=== PATIENT | female | born 1980 | race African-American/Black ===

== ENCOUNTER 2016-09-15 16:28 | Emergency (ER) | payer SELFPAY ==
[~2016-09-15] VITALS: Ht 157.5 cm; Wt 85.0 kg
[2016-09-15 19:09] VITALS: BP 150/89
== END 2016-09-15 19:26 | disposition home or self-care (01) ==
LOC: EMS 16:29
DX: J02.9 Acute pharyngitis, unspecified (principal); J06.9 Acute upper respiratory infection, unspecified
CPT/HCPCS: 99283

== ENCOUNTER 2016-10-09 11:45 | Emergency (ER) | payer OTHER ==
[~2016-10-09] VITALS: Ht 157.5 cm; Wt 90.4 kg
[2016-10-09] MEDS ORDERED: ACETAMINOPHEN 500 MG TABLET PO ONE (14:15)
[2016-10-09] MEDS ORDERED: IBUPROFEN 600 MG TABLET PO ONE (14:15)
[2016-10-09 15:09] VITALS: BP 129/84
== END 2016-10-09 15:44 | disposition home or self-care (01) ==
LOC: EMS 11:46
DX: M54.6 Pain in thoracic spine (principal); M79.652 Pain in left thigh; V49.40XA Driver injured in collision with unspecified motor vehicles in traffic accident, initial encounter; Y93.89 Activity, other specified; Y92.89 Other specified places as the place of occurrence of the external cause; Y99.8 Other external cause status
CPT/HCPCS: 72072; 99284

== ENCOUNTER 2017-12-03 07:44 | Emergency (ER) | payer OTHER ==
[~2017-12-03] VITALS: Ht 160 cm; Wt 95.5 kg
[2017-12-03] MEDS ORDERED: KETOROLAC TROMETHAMINE 30 MG/ML VIAL IM ONE (09:30)
[2017-12-03] MEDS ORDERED: AMOX TR/POT CLAV 875 MG/125 MG TABLET PO ONE (09:30)
[2017-12-03] MEDS ORDERED: CefTRIAXone SODIUM 1 GM in DEXTROSE 5%-WATER 10 ML IV ONE (09:45)
[2017-12-03] MEDS ORDERED: DEXAMETHASONE SOD PHOS 4 MG/ML 5 ML VIAL IVP ONE (09:45)
[2017-12-03] MEDS ORDERED: KETOROLAC TROMETHAMINE 30 MG/ML VIAL IVP ONE (09:45)
[2017-12-03 10:08] VITALS: BP 141/71
[2017-12-03] MEDS ORDERED: BENZOCAINE/MENTHOL LOZENGE [8 LOZENGES/PACKET] PO ONE (10:15)
== END 2017-12-03 11:01 | disposition home or self-care (01) ==
LOC: EMS 07:45
DX: J36 Peritonsillar abscess (principal)
CPT/HCPCS: 87430; 96365; 96375; 99284; J0696; J1100; J1885; J7060

== ENCOUNTER 2018-03-12 16:16 | Emergency (ER) | payer OTHER ==
[~2018-03-12] VITALS: Ht 157.5 cm; Wt 86.4 kg
[2018-03-12] MEDS ORDERED: KETOROLAC TROMETHAMINE 30 MG/ML VIAL IM ONE (17:00)
[2018-03-12] MEDS ORDERED: DEXAMETHASONE 4 MG TABLET PO ONE (17:00)
[2018-03-12] MEDS ORDERED: DiphenhydrAMINE/ZINC ACET 30 GM CREAM TP ONE (17:00)
[2018-03-12] MEDS ORDERED: CEPHALEXIN MONOHYDRATE 500 MG CAPSULE PO ONE (17:00)
[2018-03-12] MEDS ORDERED: DiphenhydrAMINE HCL 25 MG CAPSULE PO ONE (17:00)
[2018-03-12 17:48] VITALS: BP 128/84
== END 2018-03-12 17:49 | disposition home or self-care (01) ==
LOC: EMS 16:17
DX: S70.361A Insect bite (nonvenomous), right thigh, initial encounter (principal); L08.9 Local infection of the skin and subcutaneous tissue, unspecified; W57.XXXA Bitten or stung by nonvenomous insect and other nonvenomous arthropods, initial encounter; Y93.89 Activity, other specified; Y92.89 Other specified places as the place of occurrence of the external cause; Y99.8 Other external cause status
CPT/HCPCS: 96372; 99284; J1885; J8540